=== PATIENT | male | born 1960 | race Caucasian/White ===

== ENCOUNTER 2018-06-06 15:49 | Emergency (ER) | END 2018-06-06 22:31 | disposition home or self-care (01) ==

== ENCOUNTER 2018-06-08 10:07 | Emergency (ER) | END 2018-06-08 11:23 | disposition home or self-care (01) ==

== ENCOUNTER 2018-06-10 10:00 | Emergency (ER) | payer OTHER ==
[~2018-06-10] VITALS: Ht 175.3 cm; Wt 113.0 kg
[~2018-06-10 10:00] MED LIST: ACET325T33 PO; CEPH-443 PO; SULF1TAB31 PO
[2018-06-10 10:02] VITALS: BP 130/82; PULSE 88; RESP 20; Ht 175.3 cm; Wt 113.0 kg
--- NOTE | 2018-06-10 10:26 | ERD ---
ER Documentation Chief Complaint Chief Complaint Patient here a recheck wound/abscess to the groin HPI 57-year-old male, returns to the emergency department for wound check of an abscess drained 5 days ago. Patient refers feeling better no fever or chills, good adherence to medications, no side effects. ROS All systems reviewed and are negative except as per history of present illness. Medications Home Meds Active Scripts Acetaminophen* (Tylenol*) 325 Mg Tablet, 2 TAB PO Q8 PRN for PAIN AND OR ELEVATED TEMP, #20 TAB Prov:ADARSH SKELTON MD 06/06/18 Cephalexin* (Keflex*) 500 Mg Capsule, 500 MG PO QID for 10 Days, #20 CAP Prov:ADARSH SKELTON MD 06/06/18 Sulfamethoxazole/Trimethoprim* (Bactrim Ds* Tablet) 1 Each Tablet, 1 TAB PO BID, #20 TAB Prov:ADARSH SKELTON MD 06/06/18 Allergies Allergies: Coded Allergies: No Known Allergy (Unverified , 06/10/18) PMhx/Soc History of Surgery: Yes (CHOLESCYSTECTOMY) Anesthesia Reaction: No Hx Neurological Disorder: No Hx Respiratory Disorders: No Hx Cardiac Disorders: Yes (HTN,HYPERCHOLESTEROLMIA) Hx Miscellaneous Medical Probl: Yes (DM) Hx Alcohol Use: No Hx Substance Use: No Hx Tobacco Use: No Smoking Status: Never smoker FmHx Family History: diabetes; No coronary disease Physical Exam Vitals Vital Signs Date Temp Pulse Resp B/P (MAP) Pulse Ox O2 O2 Flow FiO2 Time Delivery Rate 06/10/18 97.7 88 20 130/82 96 10:02 (98) Physical Exam Const: No acute distress Head: Atraumatic Eyes: Normal Conjunctiva ENT: Normal External Ears, Nose and Mouth. Neck: Full range of motion. No meningismus. Resp: Clear to auscultation bilaterally Cardio: Regular rate and rhythm, no murmurs Abd: Soft, non tender, non distended. Normal bowel sounds Skin: right inguinal area, incision clean, dry, no active purulent discharge, remarkable improvement of the induration and erythema. Back: No midline or flank tenderness Ext: No cyanosis, or edema Neur: Awake and alert Psych: Normal Mood and Affect Procedures/MDM Status post incision and drainage 5 days ago. Adequate pain control, no fever, no chills, good compliance with medications no side effects. The patient was evaluated for infection and neurovascular compromise. The wound was clean and irrigated with normal saline and dressing applied. Patient is stable, with adequate healing process, okay to discharge home, medication adherence reinforced. some side effects of prescribed medications (headache, rash, nausea, vomiting, diarrhea, drowsiness, habituation, bleeding, hypertension, interactions with other medications) were reviewed. The patient was instructed to follow up with the primary care provider in the next 48h. If symptoms persist, worsen or new symptoms develop, then patient should return to the ED immediately. Instructions explained and given directly by me to the patient with acknowledgment and demonstrated understanding. Disclaimer: Inadvertent spelling and grammatical errors are likely due to EHR/dictation software use and do not reflect on the overall quality of patient care. Also, please note that the electronic time recorded on this note does not necessarily reflect the actual time of the patient encounter. Departure Diagnosis: Primary Impression: Encounter for wound re-check Condition: Stable Patient Instructions: Wound Packing Additional Instructions: Muchas juan a por [facility] para doan servicio. Esperamos que en doan visita a la james de emergencia doan problema medico haya sido solucionado y que se sienta mucho mejor. Para estar seguros que doan mejoria sigue en proceso, le pedimos el favor de hacer dakota pietro de seguimiento medico con doan doctor primario en los proximos 2-4 lozano. Lleve con usted estos documentos y las medicinas recetadas. Si chava sintomas empeoran, NO SE ESPERE, por favor regrese a james de emergencia INMEDIATAMENTE. En elizabeth que usted no tenga un mdico de atencin primaria: Llame al mdico o clnica comunitaria de referencia que aparece abajo lexi las horas de consultorio para hacer dakota pietro para que le vean. CLINICAS: [facility] [phone] [id number] [facility] [phone] [facility] [phone] [facility] [phone] [address] [facility] [phone] [facility]. [phone] ADARHS MANZANO MD Jun 10, 2018 10:26
== END 2018-06-10 10:59 | disposition home or self-care (01) ==
LOC: FTE 10:00
DX: Z48.01 Encounter for change or removal of surgical wound dressing (principal); I10 Essential (primary) hypertension; E11.9 Type 2 diabetes mellitus without complications
CPT/HCPCS: 99282